=== PATIENT | male | born 1980 | race Caucasian/White ===

== ENCOUNTER 2016-12-18 08:29 | Inpatient (IN) | payer OTHER ==
[2016-12-18 09:43] VITALS: BMI 27.8
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
[2016-12-18] MEDS ORDERED: P-EPHED 60MG/TRIPROLIDI 2.5MG TABLET PO PRN (14:12)
[2016-12-18] MEDS ORDERED: LOPERAMIDE HCL 2 MG CAPSULE PO PRN (14:12)
[2016-12-18] MEDS ORDERED: guaiFENesin/D-METHORPHAN HB 10 ML UNIT-DOSE CUPS PO PRN (14:12)
[2016-12-18] MEDS ORDERED: IBUPROFEN 400 MG TABLET (FP) PO PRN (14:12)
[2016-12-18] MEDS ORDERED: hydrOXYzine PAMOATE 50 MG CAPSULE (FP) PO PRN (14:12)
[2016-12-18] MEDS ORDERED: NICOTINE POLACRILEX 4 MG GUM BUC PRN (14:12)
[2016-12-18] MEDS ORDERED: MENTHOL/PHENOL 1 EACH UD MM PRN (14:12)
[2016-12-18] MEDS ORDERED: chlordiazePOXIDE HCL 25 MG CAPSULE PO PRN (14:12)
[2016-12-18] MEDS ORDERED: MAGNESIUM HYDROX 2400MG/30ML ORAL SUSPENSION 30 ML CUP PO PRN (14:12)
[2016-12-18] MEDS ORDERED: ACETAMINOPHEN 325 MG TABLET (FP) PO PRN (14:12)
[2016-12-18] MEDS ORDERED: MAGNESIUM CITRATE 300 ML BOTTLE PO PRN (14:12)
[2016-12-18] MEDS ORDERED: MAG HYDROX/AL HYDROX/SIMETH 30 ML UNIT-DOSE CUP PO PRN (14:12)
[2016-12-18] MEDS ORDERED: ALBUTEROL SO4 6.7 GM HFA INHALER IH PRN (14:14)
[2016-12-18] MEDS ORDERED: chlordiazePOXIDE HCL 25 MG CAPSULE PO ONE (14:20)
[2016-12-18] MEDS ORDERED: HYDROCORTISONE 2.5% LOTION - 1 BOTTLE TP PRN (14:21)
[2016-12-18] MEDS ORDERED: METHADONE HCL 10 MG TABLET (FOR DETOX USE ONLY) PO ONE ×2 (14:23→23:00)
[2016-12-18 17:21] LABS: MCH 27.1 pg (25.7-33.7); MCHC 32.6 g/dl (32.0-35.9); MEAN PLT VOLUME 8.9 fl (7.5-11.1); PLATELET COUNT 172 K/MM3 (134-434); RDW 13.4 % (11.9-15.9); WHITE BLOOD COUNT 7.3 K/mm3 (4.0-10.0)
[2016-12-18 17:45] LABS: URINE APPEARANCE CLEAR; URINE BILIRUBIN NEGATIVE (NEGATIVE); URINE BLOOD NEGATIVE (NEGATIVE); URINE COLOR DKYELLOW; URINE GLUCOSE (UA) 1+ (NEGATIVE); URINE KETONE TRACE (NEGATIVE); URINE LEUK ESTERASE NEGATIVE (NEGATIVE); URINE NITRITE NEGATIVE (NEGATIVE)
[2016-12-18 17:47] LABS: URINE PROTEIN 1+ (NEGATIVE)
[2016-12-18 17:50] LABS: ALBUMIN 3.7 g/dl (3.4-5.0); ANION GAP 7 (8-16); CALCIUM 8.5 mg/dL (8.5-10.1); CO2 28 mmol/L (21-32); GLUCOSE,RANDOM 102 mg/dL (74-106)
[2016-12-18] MEDS: chlordiazePOXIDE HCL 25 MG CAPSULE PO SCH ×2 (17:51→22:11)
[2016-12-18 17:53] LABS: ALK PHOS 86 U/L (45-117); BILIRUBIN,TOTAL 0.4 mg/dL (0.2-1.0); CREATININE 1.1 mg/dL (0.7-1.3); SGOT/AST 28 U/L (15-37); SGPT/ALT 33 U/L (12-78); TOT PROT 6.8 g/dl (6.4-8.2)
[2016-12-18 17:54] LABS: URINE BACTERIA RARE /hpf (NONE SEEN); URINE MUCUS MANY; URINE RBC 1 /hpf (0-3); URINE WBC 3 /hpf (3-5)
[2016-12-18] MEDS: diphenhydrAMINE HCL 50 MG CAPSULE PO PRN (22:11)
[2016-12-18] MEDS: THIAMINE HCL 100 MG TABLET (FP) PO SCH (22:11)
[2016-12-19] MEDS: chlordiazePOXIDE HCL 25 MG CAPSULE PO SCH ×2 (06:02→10:26)
--- NOTE | 2016-12-19 08:26 | CONSULT ---
[facility] Psychiatric Consult - Data Date of interview: 12/19/16 Admission source: [facility] Identifying data: This is 36 years old male with no psychiatric hospitalization history intoxicated with: Alcohol, Cocaine, Heroin and Nicotine Substance Abuse History: - Smoking Cessation. Smoking history: Current every day smoker. Have you smoked in the past 12 months: Yes. Aproximately how many cigarettes per day: 20. Hx Chewing Tobacco Use: No. Initiated information on smoking cessation: Yes. 'Breaking Loose' booklet given: 12/18/16. - Substance & Tx. History. Hx Alcohol Use: Yes. Hx Substance Use: Yes. Substance Use Type : Alcohol, Cocaine, Heroin. Hx Substance Use Treatment: Yes (detox at [place] [address].). - Substances Abused. Heroin. Route: Inhalation. Frequency: Daily. Amount used: 8-10 bags. Age of first use: 20. Date of Last Use: 12/18/16. Cocaine. Route: Inhalation. Frequency: 3-6 times per week. Amount used: $100. Age of first use: 16. Date of Last Use: 12/17/16. Alcohol-cognac/beer. Route: Oral. Frequency: Daily. Amount used: 1 1/2 pts./ 3 (40 oz.). Age of first use: 9. Date of Last Use: 12/17/16 Medical History: Asthma Psychiatric History: Patient denies past psychiatric history Physical/Sexual Abuse/Trauma History: Denies Additional Comment: Observation. Detox Unit Care Protocol Mental Status Exam - Mental Status Exam Alert and Oriented to: Person Cognitive Function: Fair Patient Appearance: Unkempt Mood: Sad Affect: Flat Patient Behavior: Sedated Speech Pattern: Delayed Voice Loudness: Mildly Soft/Quiet Thought Process: Circumstantial Thought Disorder: Being Controlled Hallucinations: Denies Suicidal Ideation: Denies Homicidal Ideation: Denies Insight/Judgement: Fair Sleep: Difficulty falling asleep Muscle strength/Tone: Mild Hypotonicity Gait/Station: Shuffling Additional Comments: Observation. Detox Unit Care Protocol Psychiatric Findings - Problem List ([place] 1, 2,3) (1) Alcohol dependence with uncomplicated withdrawal Current Visit: Yes Status: Chronic (2) Cocaine dependence, uncomplicated Current Visit: Yes Status: Chronic (3) Nicotine dependence Current Visit: Yes Status: Chronic Qualifiers: Nicotine product type: cigarettes Substance use status: uncomplicated Qualified Code(s): F17.210 - Nicotine dependence, cigarettes, uncomplicated (4) Opioid dependence with withdrawal Current Visit: Yes Status: Chronic (5) Drug-induced mood disorder Current Visit: Yes Status: Suspected - Initial Treatment Plan Initial Treatment Plan: Observation. Detox Unit Care Protocol
[2016-12-19] MEDS ORDERED: METHADONE HCL 10 MG TABLET (FOR DETOX USE ONLY) PO SCH (10:00)
[2016-12-19] MEDS: PRENATAL VITAMINS W/ FOLIC ACID TABLET (FP) PO SCH (10:26)
[2016-12-19] MEDS: NICOTINE 21 MG/24 HOURS TOPICAL PATCH TD SCH (10:28)
[2016-12-19] MEDS ORDERED: diazePAM 5 MG TABLET PO PRN (10:35)
--- NOTE | 2016-12-19 10:41 | PN ---
S CIWA - CIWA Score Nausea/Vomitin Muscle Tremors: 3 Anxiety: 3 Agitation: 3 Paroxysmal Sweats: 2 Orientation: 0-Oriented Tacttile Disturbances: 1-Very Mild Itch/Numbness Auditory Disturbances: 1-Very Mild Visual Disturbances: 1-Very Mild Sensitivity Headache: 2-Mild CIWA-Ar Total Score: 19 BHS COWS - Scale Resting Pulse: 1= [place] 81-100 Sweatin= Chills/Flushing Restless Observation: 3= Extraneous Movement Pupil Size: 1= Pupils >than Normal Bone or Joint Aches: 2= Severe Diffuse Aches Runny Nose/ Eye Tearin= Runny Nose/Eyes GI Upset > 30mins: 2= Nausea/Diarrhea Tremor Observation of Outstretched Hands: 2= Slight Tremor Visible Yawning Observation: 1= 1-2x During Session Anxiety or Irritability: 2=Irritable/Anxious Goose Flesh Skin: 0=Smooth Skin COWS Score: 17 S Progress Note (SOAP) Subjective: ALERT,IRRITABLE,ANXIOUS,INTERRUPTED SLEEP,TREMOR,PAIN IN THE BODY AND BACK, TREMOR Objective: 12/19/16 10:38 Vital Signs Temperature 98 F 12/19/16 06:42 Pulse Rate 81 12/19/16 10:00 Respiratory Rate 16 12/19/16 10:00 Blood Pressure 121/74 12/19/16 10:00 O2 Sat by Pulse Oximetry (%) EKG NSR,NORMAL ECG 71/MIN Laboratory Last Values WBC 7.3 K/mm3 (4.0-10.0) 12/18/16 14:00 RBC 4.14 M/mm3 (4.00-5.60) 12/18/16 14:00 Hgb 11.2 GM/dL (11.7-16.9) L 12/18/16 14:00 Hct 34.4 % (35.4-49) L 12/18/16 14:00 MCV 83.0 fl (80-96) 12/18/16 14:00 MCH 27.1 pg (25.7-33.7) 12/18/16 14:00 MCHC 32.6 g/dl (32.0-35.9) 12/18/16 14:00 RDW 13.4 % (11.9-15.9) 12/18/16 14:00 Plt Count 172 K/MM3 (134-434) 12/18/16 14:00 MPV 8.9 fl (7.5-11.1) 12/18/16 14:00 Sodium 138 mmol/L (136-145) 12/18/16 14:00 Potassium 3.8 mmol/L (3.5-5.1) 12/18/16 14:00 Chloride 103 mmol/L (98-107) 12/18/16 14:00 Carbon Dioxide 28 mmol/L (21-32) 12/18/16 14:00 Anion Gap 7 (8-16) L 12/18/16 14:00 BUN 20 mg/dL (7-18) H 12/18/16 14:00 Creatinine 1.1 mg/dL (0.7-1.3) 12/18/16 14:00 Creat Clearance w eGFR > 60 (>60) 12/18/16 14:00 Random Glucose 102 mg/dL (74-106) 12/18/16 14:00 Calcium 8.5 mg/dL (8.5-10.1) 12/18/16 14:00 Total Bilirubin 0.4 mg/dL (0.2-1.0) 12/18/16 14:00 AST 28 U/L (15-37) 12/18/16 14:00 ALT 33 U/L (12-78) 12/18/16 14:00 Alkaline Phosphatase 86 U/L (45-117) 12/18/16 14:00 Total Protein 6.8 g/dl (6.4-8.2) 12/18/16 14:00 Albumin 3.7 g/dl (3.4-5.0) 12/18/16 14:00 Urine Color Dkyellow 12/18/16 15:50 Urine Appearance Clear 12/18/16 15:50 Urine pH 5.0 (5.0-8.0) 12/18/16 15:50 Ur Specific [place] >= 1.030 (1.005-1.025) H 12/18/16 15:50 Urine Protein 1+ (NEGATIVE) H 12/18/16 15:50 Urine Glucose (UA) 1+ (NEGATIVE) H 12/18/16 15:50 Urine Ketones Trace (NEGATIVE) H 12/18/16 15:50 Urine Blood Negative (NEGATIVE) 12/18/16 15:50 Urine Nitrite Negative (NEGATIVE) 12/18/16 15:50 Urine Bilirubin Negative (NEGATIVE) 12/18/16 15:50 Urine Urobilinogen 2.0 mg/dL (0.2-1.0) 12/18/16 15:50 Ur Leukocyte Esterase Negative (NEGATIVE) 12/18/16 15:50 Urine RBC 1 /hpf (0-3) 12/18/16 15:50 Urine WBC 3 /hpf (3-5) 12/18/16 15:50 Urine Bacteria Rare /hpf (NONE SEEN) 12/18/16 15:50 Urine Mucus Many 12/18/16 15:50 RPR Titer Nonreactive (NONREACTIVE) 12/18/16 14:00 WITHDRAWAL SYMPTOM Assessment: 12/19/16 10:39 WITHDRAWAL SYMPTOM Plan: CONTINUE DETOX,PATIENT DID NOT WANT LIBRIUM,WILL CHANGE REGIMEN TO METHADONE AND VALIUM
[2016-12-19] MEDS ORDERED: diazePAM 5 MG TABLET PO ONE (10:43)
[2016-12-19] MEDS: diazePAM 5 MG TABLET PO SCH ×2 (14:50→22:27)
--- NOTE | 2016-12-19 16:39 | EKG ---
Test Reason : Blood Pressure : / mmHG Vent. Rate : 071 BPM Atrial Rate : 071 BPM P-R Int : 154 ms QRS Dur : 086 ms QT Int : 408 ms P-R-T Axes : 066 027 017 degrees QTc Int : 443 ms NORMAL SINUS RHYTHM NORMAL ECG NO PREVIOUS ECGS AVAILABLE Confirmed by PARVEEN CARTAGENA MD ([id number]) on 12/19/2016 4:38:42 PM Referred By: Confirmed By:PARVEEN CARTAGENA MD
[2016-12-19] MEDS ORDERED: chlordiazePOXIDE HCL 25 MG CAPSULE PO SCH (17:00)
[2016-12-19] MEDS: THIAMINE HCL 100 MG TABLET (FP) PO SCH (22:27)
[2016-12-19] MEDS: diphenhydrAMINE HCL 50 MG CAPSULE PO PRN (22:28)
[2016-12-20] MEDS: diazePAM 5 MG TABLET PO SCH ×2 (06:12→22:04)
--- NOTE | 2016-12-20 11:08 | PN ---
S CIWA - CIWA Score Nausea/Vomitin Muscle Tremors: 2 Anxiety: 2 Agitation: 2 Paroxysmal Sweats: 3 Orientation: 0-Oriented Tacttile Disturbances: 1-Very Mild Itch/Numbness Auditory Disturbances: 0-None Visual Disturbances: 0-None Headache: 0-None Present CIWA-Ar Total Score: 13 BHS COWS - Scale Resting Pulse: 0= [place] 80 or Below Sweatin= Chills/Flushing Restless Observation: 1= Difficult to Sit Still Pupil Size: 1= Pupils >than Normal Bone or Joint Aches: 1= Mild Discomfort Runny Nose/ Eye Tearin= Nasal Congestion GI Upset > 30mins: 2= Nausea/Diarrhea Tremor Observation of Outstretched Hands: 1= Tremor [place], Not Seen Yawning Observation: 0= None Anxiety or Irritability: 1=Feels Anxious/Irritable Goose Flesh Skin: 0=Smooth Skin COWS Score: 9 BHS Progress Note (SOAP) Subjective: interrupted sleep, sweats, diarrhea Objective: 12/20/16 11:06 Vital Signs Temperature 97.2 F L 12/20/16 10:00 Pulse Rate 78 12/20/16 10:00 Respiratory Rate 20 12/20/16 10:00 Blood Pressure 123/72 12/20/16 10:00 O2 Sat by Pulse Oximetry (%) Laboratory Tests 12/18/16 12/18/16 12/18/16 14:00 14:00 14:00 WBC 7.3 RBC 4.14 Hgb 11.2 L Hct 34.4 L MCV 83.0 MCH 27.1 MCHC 32.6 RDW 13.4 Plt Count 172 MPV 8.9 Sodium 138 Potassium 3.8 Chloride 103 Carbon Dioxide 28 Anion Gap 7 L BUN 20 H Creatinine 1.1 Creat Clearance w eGFR > 60 Random Glucose 102 Calcium 8.5 Total Bilirubin 0.4 AST 28 ALT 33 Alkaline Phosphatase 86 Total Protein 6.8 Albumin 3.7 Urine Color Urine Appearance Urine pH Ur Specific [place] Urine Protein Urine Glucose (UA) Urine Ketones Urine Blood Urine Nitrite Urine Bilirubin Urine Urobilinogen Ur Leukocyte Esterase Urine RBC Urine WBC Urine Bacteria Urine Mucus RPR Titer Nonreactive 12/18/16 15:50 WBC RBC Hgb Hct MCV MCH MCHC RDW Plt Count MPV Sodium Potassium Chloride Carbon Dioxide Anion Gap BUN Creatinine Creat Clearance w eGFR Random Glucose Calcium Total Bilirubin AST ALT Alkaline Phosphatase Total Protein Albumin Urine Color Dkyellow Urine Appearance Clear Urine pH 5.0 Ur Specific [place] >= 1.030 H Urine Protein 1+ H Urine Glucose (UA) 1+ H Urine Ketones Trace H Urine Blood Negative Urine Nitrite Negative Urine Bilirubin Negative Urine Urobilinogen 2.0 Ur Leukocyte Esterase Negative Urine RBC 1 Urine WBC 3 Urine Bacteria Rare Urine Mucus Many RPR Titer pt aox3 in nad, lying in bed Assessment: 12/20/16 11:07 withdrawal sx's Plan: cont. detox increase fluids imodium prn
[2016-12-20] MEDS: PRENATAL VITAMINS W/ FOLIC ACID TABLET (FP) PO SCH (11:27)
[2016-12-20] MEDS: METHADONE HCL 5 MG TABLET (FOR DETOX USE ONLY) PO SCH (11:28)
[2016-12-20] MEDS: NICOTINE 21 MG/24 HOURS TOPICAL PATCH TD SCH (11:28)
[2016-12-20] MEDS ORDERED: chlordiazePOXIDE 5 MG CAPSULE PO SCH (17:00)
[2016-12-20] MEDS: diphenhydrAMINE HCL 50 MG CAPSULE PO PRN (22:03)
[2016-12-20] MEDS: THIAMINE HCL 100 MG TABLET (FP) PO SCH (22:03)
[2016-12-21 09:51] VITALS: BP 131/87; PULSE 69; TEMP 97.2
[2016-12-21] MEDS ORDERED: diazePAM 5 MG TABLET PO SCH (10:00)
--- NOTE | 2016-12-21 10:26 | PN ---
BHS Progress Note (SOAP) Subjective: alert,irritable,anxious,interrupted sleep,pain in the body and back Objective: 12/21/16 10:26 Vital Signs Temperature 97.2 F L 12/21/16 09:50 Pulse Rate 69 12/21/16 09:50 Respiratory Rate 16 12/21/16 09:50 Blood Pressure 131/87 12/21/16 09:50 O2 Sat by Pulse Oximetry (%) Assessment: 12/21/16 10:26 withdrawal symptom Plan: continue detox
--- NOTE | 2016-12-21 10:36 | PN ---
BHS Progress Note Note: addendum patient did not want to complete treatment,seen by counselor and nursing kitchen work supervisor,singed release paty
--- NOTE | 2016-12-21 10:40 | DS ---
[facility] Detox Discharge Summary Admission Date: 12/18/16 Discharge Date: 12/21/16 - History Present History: Alcohol Dependence, Cocaine Dependence, Opioid Dependence Additional Comments: patient did not want to complete treatment,seen by counselor and nursing compounding and finishing supervisor,signed release ama Pertinent Past History: asthma nicotine dependence - Physical Exam Results Vital Signs: Vital Signs Temperature 97.2 F L 12/21/16 09:50 Pulse Rate 69 12/21/16 09:50 Respiratory Rate 16 12/21/16 09:50 Blood Pressure 131/87 12/21/16 09:50 O2 Sat by Pulse Oximetry (%) Pertinent Admission Physical Exam Findings: withdrawal symptom - Medication Discharge Medications: Ambulatory Orders Albuterol Sulfate Inhaler - [Ventolin Hfa Inhaler -] 2 inh PO Q4H PRN 12/18/16 - Diagnosis (1) Alcohol dependence with uncomplicated withdrawal Current Visit: Yes Status: Chronic (2) Asthma Current Visit: Yes Status: Chronic Qualifiers: Asthma severity: mild intermittent Asthma complication type: uncomplicated Qualified Code(s): J45.20 - Mild intermittent asthma, uncomplicated (3) Cocaine dependence, uncomplicated Current Visit: Yes Status: Chronic (4) Nicotine dependence Current Visit: Yes Status: Chronic Qualifiers: Nicotine product type: cigarettes Substance use status: uncomplicated Qualified Code(s): F17.210 - Nicotine dependence, cigarettes, uncomplicated (5) Opioid dependence with withdrawal Current Visit: Yes Status: Chronic (6) Drug-induced mood disorder Current Visit: Yes Status: Suspected - AMA Did Patient Leave Against Medical Advice: Yes
[2016-12-21] MEDS: NICOTINE 21 MG/24 HOURS TOPICAL PATCH TD SCH (11:55)
[2016-12-21] MEDS: METHADONE HCL 5 MG TABLET (FOR DETOX USE ONLY) PO SCH (11:55)
[2016-12-21] MEDS: PRENATAL VITAMINS W/ FOLIC ACID TABLET (FP) PO SCH (11:55)
[2016-12-21] MEDS ORDERED: chlordiazePOXIDE HCL 10 MG CAPSULE PO SCH (17:00)
[2016-12-22] MEDS ORDERED: METHADONE HCL 10 MG TABLET (FOR DETOX USE ONLY) PO SCH (10:00)
[2016-12-23] MEDS ORDERED: METHADONE HCL 5 MG TABLET (FOR DETOX USE ONLY) PO SCH (06:00)
[2016-12-23] MEDS ORDERED: diazePAM 5 MG TABLET PO SCH (10:00)
== END 2016-12-21 10:36 | disposition left against medical advice (07) | DRG 770 ==
LOC: YASAS 08:29 → Y6N 12:31
PROVIDERS: ADMIT Internal Medicine Addiction Medicine; ATTEND Internal Medicine Addiction Medicine
PROC: HZ2ZZZZ Detoxification Services for Substance Abuse Treatment (ICD-10-PCS; principal; 2016-12-21)
DX: F11.23 Opioid dependence with withdrawal (principal); F10.230 Alcohol dependence with withdrawal, uncomplicated; F14.20 Cocaine dependence, uncomplicated; F17.210 Nicotine dependence, cigarettes, uncomplicated; F19.24 Other psychoactive substance dependence with psychoactive substance-induced mood disorder; J45.20 Mild intermittent asthma, uncomplicated
CPT/HCPCS: 36415; 80053; 81003; 81015; 85027; 86593; 93005; 93010